=== PATIENT | female | born 1940 | race Caucasian/White ===

== ENCOUNTER 2020-01-10 06:10 | Observation (INO) ==
[2020-01-10] MEDS ORDERED: Ondansetron 4 MG/2 ML VIAL IVP PRN ×4 (08:38→17:18)
[2020-01-10] MEDS ORDERED: *HR* HYDROcodone/Acet 5/325 mg TABLET PO PRN ×2 (08:38→17:18)
[2020-01-10] MEDS ORDERED: Naloxone 0.4 MG/ML INJ IVP PRN ×2 (08:38→17:18)
[2020-01-10] MEDS ORDERED: Acetaminophen 325 MG TABLET PO PRN ×2 (08:38→17:18)
[2020-01-10] MEDS ORDERED: 0.9 % Sodium Chloride 1,000 ML IVC SCH (08:45)
[2020-01-10] MEDS ORDERED: cefTRIAXone 1,000 MG in Water for inj. (sterile) 10 ML IVP SCH (11:00)
[2020-01-10] MEDS ORDERED: *HR* FentaNYL (PF) 100 MCG/2 ML VIAL IVP PRN ×2 (15:14→17:18)
[2020-01-10] MEDS ORDERED: *HR* Propofol 200 MG/20 ML VIAL IVP ONE (15:22)
[2020-01-10] MEDS ORDERED: *HR* Succinylcholine 200 MG/10 ML VIAL IVP ONE (15:30)
[2020-01-10] MEDS ORDERED: Dexamethasone 4 MG/ML VIAL ONE ×2 (15:33→16:12)
[2020-01-10] MEDS ORDERED: Lidocaine -MPF 2% 2 ML VIAL ONE (15:33)
[2020-01-10] MEDS ORDERED: Ondansetron 4 MG/2 ML VIAL ONE (15:33)
[2020-01-10] MEDS ORDERED: *HR* PHENYLEPHRINE 1,000 MCG/10 ML SYRINGE IVP ONE (16:08)
[2020-01-10] MEDS ORDERED: Acetaminophen IV 1,000 MG/100 ML INFUS..BTL ONE (16:12)
[2020-01-11 07:15] LABS: INR 1.2; Prothrombin Time 13.9 Seconds (9.4-12.1)
[2020-01-11 07:25] LABS: Hematocrit 35.6 % (35.3-44.9); Hemoglobin 11.6 g/dL (11.5-15.4); Mean Corpuscular HGB Conc 32.6 g/dL (31.6-35.5); Mean Corpuscular Hemoglobin 31.4 pg (28.0-33.3); Mean Corpuscular Volume 96.5 fL (83.0-100.0); Mean Platelet Volume 10.6 fL (9.4-12.4); Platelet Count 144 K/mcL (140-400); Red Blood Count 3.69 M/mcL (3.82-4.97); White Blood Count 16.7 K/mcL (4.3-11.1)
[2020-01-11 07:32] LABS: BUN/Creatinine Ratio 20 (6-26); Blood Urea Nitrogen 18 mg/dL (8-23); Carbon Dioxide 25 mEq/L (23-29); Chloride 109 mEq/L (98-107); Glucose 154 mg/dL (70-105); Magnesium 1.9 mg/dL (1.6-2.6); Osmolality,Calculated 293 (280-300); Phosphorous 2.9 mg/dL (2.7-4.5); Potassium 4.1 mEq/L (3.5-5.1); Sodium 139 mEq/L (136-145); eGFR For African Americans > 60 (> 60); eGFR For Non-African Americans 59 (> 60)
[2020-01-11] MEDS ORDERED: cefTRIAXone 1,000 MG in Water for inj. (sterile) 10 ML IVP SCH (09:00)
[2020-01-11 10:40] LABS: Basophils % 0.1 %; Hematocrit 36.3 % (35.3-44.9); Hemoglobin 11.5 g/dL (11.5-15.4); Immature Granulocytes % 0.5 % (0-4); Lymphocytes # 0.4 K/mcL (0.6-4.6); Lymphocytes % 2.6 %; Mean Corpuscular HGB Conc 31.7 g/dL (31.6-35.5); Mean Corpuscular Hemoglobin 30.1 pg (28.0-33.3); Monocytes # 0.3 K/mcL (0.0-1.3); Monocytes % 1.9 %; Neutrophils # 16.2 K/mcL (1.6-8.9); Platelet Count 149 K/mcL (140-400); Red Blood Count 3.82 M/mcL (3.82-4.97); Red Cell Distribution Width 13.2 % (11.5-14.5); Segmented Neutrophils % 94.9 %; White Blood Count 17.1 K/mcL (4.3-11.1)
[2020-01-11 10:48] VITALS: BP 122/71
== END 2020-01-11 17:04 | disposition home or self-care (01) ==
LOC: 3ANU → SUATTDRO 09:56
PROVIDERS: ADMIT Internal Medicine; ATTEND Internal Medicine